=== PATIENT | male | born 1955 | race Caucasian/White ===

== ENCOUNTER 2016-09-10 09:20 | Emergency (ER) | payer OTHER ==
[~2016-09-10] VITALS: Ht 182.9 cm; Wt 172.5 kg
[2016-09-10 10:18] LABS: BASOPHIL COUNT 0.1 K/uL (0-0.1); EOSINOPHIL COUNT 0.2 K/uL (0-0.3); HEMATOCRIT 49.3 % (38.0-50.0); IMMATURE GRANULOCYTE COUNT 0.1 K/uL; INSTRUMENT ABS NEUTROPHIL CT 8.1 K/uL; LYMPHOCYTE COUNT 1.8 K/uL (1.0-2.8); MCH 28.9 PG (29.0-34.0); MCV 90.1 FL (86-99); MEAN PLAT.VOLUME 10.9 uM^3 (9.0-12.4); MONOCYTE (%) 7.5 % (3-12); MONOCYTE COUNT 0.8 K/uL (0-0.8); NEUTROPHIL (%) 73.2 % (45-76); NEUTROPHIL COUNT 8.1 K/uL (1.8-6.4); PLATELET COUNT 213 K/uL (156-360); RBC DIS.WIDTH-CV 14.6 % (11.8-14.6); RBC DIS.WIDTH-SD 48.5 % (39-53); RED BLOOD COUNT 5.47 M/uL (4.00-5.50); WHITE BLOOD COUNT 11.1 K/uL (4.1-10.2)
[2016-09-10 10:28] LABS: CHLORIDE 114 mEq/L (99-109); POTASSIUM 4.8 mEq/L (3.7-5.4); SODIUM 141 mEq/L (136-147)
[2016-09-10 10:31] LABS: GLUCOSE 142 mg/dL (70-99)
[2016-09-10 10:32] LABS: ANION GAP 8 MEQ/L (2-14)
[2016-09-10 10:33] LABS: TOTAL BILIRUBIN 0.8 mg/dL (0.0-1.0)
[2016-09-10 10:34] LABS: ALKALINE PHOSPHATASE 66 IU/L (3-129); GFR ESTIMATE (CALCULATED) 55 mL/min/
[2016-09-10 10:35] LABS: UREA NITROGEN (BUN) 16 mg/dL (9-23)
[2016-09-10 10:38] LABS: LIPASE 60 U/L (1.0-51.0)
[2016-09-10] MEDS ORDERED: BENTYL20 MG PO (13:31)
[2016-09-10] MEDS ORDERED: ZOFRAN ODT4 MG PO (13:31)
[2016-09-10] MEDS ORDERED: IMODIUM MS REL1 EACH PO (13:31)
[2016-09-10 13:39] LABS: ADD MIUA? NO; BILIRUBIN NEGATIVE; BLOOD NEGATIVE; COLOR YELLOW ((YELLOW)); GLUCOSE (STRIP) NEGATIVE; KETONES NEGATIVE; LEUKOCYTES NEGATIVE; NITRITE NEGATIVE; PROTEIN (STRIP) NEGATIVE; SPECIFIC GRAVITY 1.044 (1.000-1.030); UCUL ADDED? NO; UROBILINOGEN 0.2 MG/DL (0.2-1.0)
[2016-09-10 13:46] VITALS: BP 119/68
== END 2016-09-10 13:52 | disposition home or self-care (01) ==
LOC: EME 09:20
PROVIDERS: Emergency Medicine
DX: R10.12 Left upper quadrant pain (principal); K52.9 Noninfective gastroenteritis and colitis, unspecified
CPT/HCPCS: 74177; 80053; 81003; 83690; 85025; 87493; 93005; 99281; 99285; J2270; J7030

== ENCOUNTER 2016-10-08 08:44 | Observation (INO) | payer OTHER ==
[~2016-10-08] VITALS: Ht 182.9 cm; Wt 172.5 kg
[~2016-10-08 08:44] MED LIST: BENTYL20 MG PO; IMODIUM MS REL1 EACH PO; ZOFRAN ODT4 MG PO
[2016-10-08] MEDS ORDERED: TYLENOL WITH C1 EACH PO (12:44)
[2016-10-08 14:50] LABS: BASOPHIL COUNT 0.1 K/uL (0-0.1); EOSINOPHIL (%) 1.6 % (0-5); EOSINOPHIL COUNT 0.2 K/uL (0-0.3); HEMATOCRIT 43.5 % (38.0-50.0); IMMATURE GRANULOCYTE (%) 1.1 % (0.0-0.7); IMMATURE GRANULOCYTE COUNT 0.1 K/uL; INSTRUMENT ABS NEUTROPHIL CT 7.1 K/uL; LYMPHOCYTE COUNT 2.3 K/uL (1.0-2.8); MCH 28.7 PG (29.0-34.0); MCHC 32.4 G/DL (30.0-36.0); MCV 88.4 FL (86-99); MEAN PLAT.VOLUME 11.1 uM^3 (9.0-12.4); MONOCYTE COUNT 1.2 K/uL (0-0.8); NEUTROPHIL COUNT 7.1 K/uL (1.8-6.4); PLATELET COUNT 192 K/uL (156-360); RBC DIS.WIDTH-CV 14.3 % (11.8-14.6); RBC DIS.WIDTH-SD 46.2 % (39-53); RED BLOOD COUNT 4.92 M/uL (4.00-5.50); WHITE BLOOD COUNT 10.9 K/uL (4.1-10.2)
[2016-10-08 14:59] LABS: CHLORIDE 108 mEq/L (99-109); POTASSIUM 4.6 mEq/L (3.7-5.4); SODIUM 137 mEq/L (136-147)
[2016-10-08 15:01] LABS: GLUCOSE 109 mg/dL (70-99)
[2016-10-08 15:02] LABS: ANION GAP 7 MEQ/L (2-14)
[2016-10-08 15:05] LABS: GFR ESTIMATE (CALCULATED) > 59 mL/min/
[2016-10-08 15:06] LABS: UREA NITROGEN (BUN) 29 mg/dL (9-23)
[2016-10-08] MEDS ORDERED: PRINIVIL20 MG PO (15:18)
[2016-10-08] MEDS ORDERED: CRESTOR20 MG PO (15:19)
[2016-10-08] MEDS ORDERED: HYDROCHLOROTHIA25 MG PO (15:19)
[2016-10-08 15:45] VITALS: BP 161/82
[2016-10-08 20:00] VITALS: BP 119/55
[2016-10-09] VITALS: BP 118/55
[2016-10-09 03:30] VITALS: BP 112/57
[2016-10-09 09:30] VITALS: BP 109/53
[2016-10-09 10:56] VITALS: BP 113/55
[2016-10-09 16:00] VITALS: BP 128/60
[2016-10-10 00:05] VITALS: BP 133/60
[2016-10-10 04:20] VITALS: BP 140/64
[2016-10-10 05:33] LABS: EOSINOPHIL (%) 0 % (0-5); HEMATOCRIT 44.9 % (38.0-50.0); IMMATURE GRANULOCYTE (%) 1.2 % (0.0-0.7); IMMATURE GRANULOCYTE COUNT 0.2 K/uL; INSTRUMENT ABS NEUTROPHIL CT 13.8 K/uL; LYMPHOCYTE COUNT 1.2 K/uL (1.0-2.8); MCH 29.9 PG (29.0-34.0); MCHC 34.1 G/DL (30.0-36.0); MCV 87.7 FL (86-99); MEAN PLAT.VOLUME 11.3 uM^3 (9.0-12.4); MONOCYTE (%) 3.9 % (3-12); MONOCYTE COUNT 0.6 K/uL (0-0.8); NEUTROPHIL (%) 87.2 % (45-76); NEUTROPHIL COUNT 13.8 K/uL (1.8-6.4); PLATELET COUNT 216 K/uL (156-360); RBC DIS.WIDTH-CV 13.9 % (11.8-14.6); RBC DIS.WIDTH-SD 44.6 % (39-53); RED BLOOD COUNT 5.12 M/uL (4.00-5.50); WHITE BLOOD COUNT 15.8 K/uL (4.1-10.2)
[2016-10-10 05:39] LABS: ANION GAP 8 MEQ/L (2-14); CHLORIDE 103 MEQ/L (99-109); GFR ESTIMATE (CALCULATED) > 59 mL/min/; SAMPLE HEMOLYSIS CHECK 0; SAMPLE ICTERIC CHECK 0; SAMPLE LIPEMIA CHECK 0; SODIUM 134 MEQ/L (136-147); UREA NITROGEN (BUN) 27 mg/dL (9-23)
[2016-10-10 05:48] LABS: GLUCOSE 211 mg/dL (70-99); POTASSIUM 5.6 MEQ/L (3.7-5.4)
[2016-10-10 07:51] VITALS: BP 141/80
[2016-10-10] MEDS ORDERED: GABAPENTIN300 MG PO (07:52)
[2016-10-10] MEDS ORDERED: HYDROCODON-ACE1 EAC9 PO (07:52)
[2016-10-10 12:26] VITALS: BP 157/68
[2016-10-10] MEDS ORDERED: POLYETHYLENE GL17 GM PO (13:14)
[2016-10-10] MEDS ORDERED: MOTRIN600 MG PO (13:15)
== END 2016-10-10 14:18 | disposition home or self-care (01) ==
LOC: EME 08:44 → EDOF 14:28 → 5WEST 14:28 → EDOF 14:28 → ENRESERV 14:29 → 5WEST 15:39
PROVIDERS: Emergency Medicine; Internal Medicine
PROC: 3E0S33Z Introduction of Anti-inflammatory into Epidural Space, Percutaneous Approach (ICD-10-PCS; principal; 2016-10-09)
DX: M51.16 Intervertebral disc disorders with radiculopathy, lumbar region (principal); M54.5 Low back pain; M79.605 Pain in left leg; R26.9 Unspecified abnormalities of gait and mobility; I10 Essential (primary) hypertension; E78.5 Hyperlipidemia, unspecified; E66.9 Obesity, unspecified; Z68.43 Body mass index [BMI] 50.0-59.9, adult; Z91.030 Bee allergy status; Z88.5 Allergy status to narcotic agent; Z80.7 Family history of other malignant neoplasms of lymphoid, hematopoietic and related tissues; Z80.3 Family history of malignant neoplasm of breast
CPT/HCPCS: 72148; 80048; 85025; 99281; 99285; G0378; G8978 GP CJ; G8979 GP CI; G8987 GO CI; G8988 GO CH; J1030; J1170; J1650; J1885; J2270; J3010; J7050; J8540

== ENCOUNTER 2017-04-15 21:55 | Emergency (ER) | payer OTHER ==
[~2017-04-15] VITALS: Ht 182.9 cm; Wt 182.7 kg
[~2017-04-15 21:55] MED LIST changes: +CRESTOR20 MG PO; +GABAPENTIN300 MG PO; +HYDROCHLOROTHIA25 MG PO; +HYDROCODON-ACE1 EAC9 PO; +MOTRIN600 MG PO; +POLYETHYLENE GL17 GM PO; +PRINIVIL20 MG PO; +TYLENOL WITH C1 EACH PO
[2017-04-15 22:43] LABS: HEMATOCRIT 45.9 % (38.0-50.0); HEMOGLOBIN 15.5 G/DL (12.5-16.6); MCHC 33.8 G/DL (30.0-36.0); MCV 85.8 FL (86-99); PLATELET COUNT 148 K/uL (156-360); RBC DIS.WIDTH-CV 13.7 % (11.8-14.6); RBC DIS.WIDTH-SD 42.5 % (39-53); RED BLOOD COUNT 5.35 M/uL (4.00-5.50); WHITE BLOOD COUNT 15.8 K/uL (4.1-10.2)
[2017-04-15 22:47] LABS: CARBON DIOXIDE (BICARBONATE) 19.5 MEQ/L (20-31)
[2017-04-15 22:57] LABS: ALBUMIN 3.7 g/dL (3.2-4.8); CHLORIDE 99 mEq/L (99-109); POTASSIUM 4.3 mEq/L (3.7-5.4); SODIUM 131 mEq/L (136-147)
[2017-04-15 22:59] LABS: TOTAL PROTEIN 7.2 g/dL (6.4-8.3)
[2017-04-15 23:01] LABS: TOTAL BILIRUBIN 1.6 mg/dL (0.0-1.0)
[2017-04-15 23:03] LABS: ALKALINE PHOSPHATASE 75 IU/L (3-129); CREATININE 1.7 mg/dL (0.6-1.3); GFR ESTIMATE (CALCULATED) 44 mL/min/ (58.99-99999)
[2017-04-15 23:04] LABS: AST (GOT) 23 IU/L (2-34); UREA NITROGEN (BUN) 17 mg/dL (9-23)
[2017-04-15 23:06] LABS: ALT (GPT) 22 IU/L (3-49)
[2017-04-15 23:07] LABS: GLUCOSE 483 mg/dL (70-99)
[2017-04-16 01:14] LABS: APPEARANCE CLEAR ((CLEAR)); BILIRUBIN NEGATIVE; BLOOD MODERATE; COLOR YELLOW ((YELLOW)); GLUCOSE (STRIP) >=500; KETONES 80; LEUKOCYTES NEGATIVE; NITRITE NEGATIVE; PROTEIN (STRIP) 30; SPECIFIC GRAVITY 1.022 (1.000-1.030); UROBILINOGEN 0.2 MG/DL (0.2-1.0)
[2017-04-16 01:17] LABS: BACTERIA NONE SEEN /HPF; EPITHELIAL CELLS NONE SEEN /HPF; MUCUS NONE SEEN /LPF; RED BLOOD CELLS 0-5 /HPF (0-5); UCUL ADDED? NO; WHITE BLOOD CELLS 0-5 /HPF (0-5)
[2017-04-16] MEDS ORDERED: LOPRESSOR50 MG PO (01:39)
[2017-04-16] MEDS ORDERED: LOPRESSOR100 M1 PO (01:41)
[2017-04-16] MEDS ORDERED: AMLODIPINE BESYL5 MG PO (01:42)
[2017-04-16] MEDS ORDERED: LEVOTHYROXINE88 MCG PO (01:44)
[2017-04-16] MEDS ORDERED: LEVOTHYROXINE25 MCG PO (01:46)
[2017-04-16 02:29] LABS: CHLORIDE 103 mEq/L (99-109); SODIUM 135 mEq/L (136-147)
[2017-04-16 02:30] LABS: GLUCOSE 344 mg/dL (70-99)
[2017-04-16 02:34] LABS: CREATININE 1.5 mg/dL (0.6-1.3); GFR ESTIMATE (CALCULATED) 51 mL/min/ (58.99-99999)
[2017-04-16 02:35] LABS: UREA NITROGEN (BUN) 14 mg/dL (9-23)
[2017-04-16 03:02] LABS: BASE EXCESS -6.4 mEq/L (-3 to +3); BICARBONATE 16.2 mEq/L (22-26); CARBOXY HGB 1.9 % (0-5); COMMENTS - BLOOD GASES C+A+; DEVICE ROOM AIR; FI02 21 %; METHEMOGLOBIN 1.5 % (0-1.5); PCO2 25 mm Hg (35-45); PO2 61 mm Hg (80-100); SITE RR; TOTAL RESP RATE 32 resp/min; pH 7.42 (7.35-7.45)
[2017-04-16 04:12] LABS: CHLORIDE 105 mEq/L (99-109); POTASSIUM 3.9 mEq/L (3.7-5.4); SODIUM 136 mEq/L (136-147)
[2017-04-16 04:14] LABS: GLUCOSE 322 mg/dL (70-99)
[2017-04-16 04:18] LABS: CREATININE 1.4 mg/dL (0.6-1.3); GFR ESTIMATE (CALCULATED) 55 mL/min/ (58.99-99999); PHOSPHORUS 2.4 mg/dL (2.5-4.9)
[2017-04-16 04:19] LABS: UREA NITROGEN (BUN) 13 mg/dL (9-23)
[2017-04-16 07:13] LABS: THYROTROPIN (TSH) 7.3 MIU/L (0.4-5.5)
[2017-04-16 07:50] LABS: CHLORIDE 104 MEQ/L (99-109); CREATININE 1.3 MG/DL (0.6-1.3); GFR ESTIMATE (CALCULATED) > 59 mL/min/ (58.99-99999); GLUCOSE 262 mg/dL (70-99); PHOSPHORUS 2.5 mg/dL (2.5-4.9); POTASSIUM 3.9 MEQ/L (3.7-5.4); SODIUM 137 MEQ/L (136-147); UREA NITROGEN (BUN) 12 mg/dL (9-23)
[2017-04-16 07:54] LABS: CHLORIDE 104 MEQ/L (99-109); CREATININE 1.3 MG/DL (0.6-1.3); GFR ESTIMATE (CALCULATED) > 59 mL/min/ (58.99-99999); GLUCOSE 262 mg/dL (70-99); POTASSIUM 3.9 MEQ/L (3.7-5.4); SODIUM 137 MEQ/L (136-147); UREA NITROGEN (BUN) 12 mg/dL (9-23)
[2017-04-16 09:42] VITALS: BP 149/72
[2017-04-16 10:21] LABS: HEMOGLOBIN A1c (GLYCOHEMOGLOB) 13.8 % (Below 5.7)
== END 2017-04-16 09:43 | disposition designated cancer center or children's hospital, planned readmission (85) ==
LOC: EME 21:55
PROVIDERS: Emergency Medicine; Nurse Practitioner Family
DX: E11.10 Type 2 diabetes mellitus with ketoacidosis without coma (principal); D72.829 Elevated white blood cell count, unspecified; R91.8 Other nonspecific abnormal finding of lung field; I10 Essential (primary) hypertension; E03.9 Hypothyroidism, unspecified; E78.5 Hyperlipidemia, unspecified; Z87.442 Personal history of urinary calculi; Z88.5 Allergy status to narcotic agent
CPT/HCPCS: 36600; 71045; 80048; 80048 91; 80053; 81003; 82010; 82803; 82948; 83036; 83605; 83880; 84100; 84443; 85027; 87040; 87077; 87186; 87502; 87801; 93005; 99281; 99285; J0456; J0696; J1815; J7030; J7050